=== PATIENT | female | born 1995 | race Two or more races ===

== ENCOUNTER 2023-08-09 00:36 | Emergency (ER) | payer OTHER ==
[~2023-08-09] VITALS: Ht 152.4 cm; Wt 69.0 kg
[2023-08-09 02:24] LABS: Urine Bacteria FEW /hpf (None Seen); Urine Blood Negative /uL (Negative); Urine Clarity Clear (Clear); Urine Color Yellow (Yellow); Urine Mucus FEW (None Seen); Urine Protein, UAD 1+ (Negative); Urine WBC 14 /hpf (0 - 5); Urine pH 6.5 (5.0-8.0)
[2023-08-09 06:28] VITALS: BP 112/64; PULSE 87; RESP 18; TEMP 99.1; O2SAT 99
[2023-08-09] MEDS ORDERED: ACETAMINOPHEN 500 MG TAB PO ONE (07:00)
== END 2023-08-09 07:11 | disposition home or self-care (01) ==
LOC: ER 00:36
DX: O26.892 Other specified pregnancy related conditions, second trimester (principal); S39.012A Strain of muscle, fascia and tendon of lower back, initial encounter; Z3A.16 16 weeks gestation of pregnancy; X58.XXXA Exposure to other specified factors, initial encounter; Y93.89 Activity, other specified; Y92.89 Other specified places as the place of occurrence of the external cause; Y99.8 Other external cause status
CPT/HCPCS: 76805; 81001